=== PATIENT | male | born 2000 | race Caucasian/White ===

== ENCOUNTER 2025-06-22 11:37 | Emergency (ER) | payer OTHER, SELFPAY ==
--- NOTE | ~2025-06-22 | XR_ITS ---
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 Technique: 2 views obtained. Findings: The lungs are clear, no effusion. No pneumothorax. Heart is normal size. Mediastinal and hilar contours are within normal limits. Bony thorax no acute abnormality. Impression: No acute cardiopulmonary abnormality. Reviewed, dictated and finalized at location P. NG INSPECTOR Impression: No acute cardiopulmonary abnormality.
--- OUTSIDE RECORDS SUMMARY | 2025-06-22 11:38 | XMS_ITS | Clinical Summary ---
Author Organization [facility] Address [address] [place] [phone] Phone Care Team Providers Care Supervisor Bonding Name Role Phone Unavailable Primary Care Provider Unavailabl e Allergies No known active allergies Medications mometasone (ASMANEX) 220 mcg Aerosol Powdr Breath Activated Take 1 Puff by inhalation 2 times daily. Active Active Problems Problem Noted Date Diagnosed Date Moderate single current epis ode of major depressive disorder 01/05/2017 Family History Medical History Relation Name Comments Diabetes Father Hypertension Father Breast Cancer Mother Relation Name Status Comments Father Alive Mother Alive Social History Tobacco Use Types Packs/Day Years Used Date Smoking Tobacco: Never Alcohol Use Standard Drinks/Week Comments No 0 (1 standard drink = 0.6 oz pur e alcohol) Sex and Gender Information Value Date Recorded Sex Assigned at Not on file Legal Sex Male 1:15 PM CDT Gender Identity Not on file Sexual Orientation Not on file Last Filed Vital Signs Vital Sign Reading Time Taken Comments Blood Pressure 110/64 01/05/2017 4:38 PM CDT Pulse - - Temperature 37.1 C (98.8 F) 01/05/2017 1:20 PM CDT Respiratory Rate 17 01/05/2017 4:38 PM CDT Oxygen Saturation 99% 01/05/2017 4:38 PM CDT Inhaled Oxygen Concentration - - Weight 57.2 kg (126 lb) 01/05/2017 1:20 PM CDT Height - - Body Mass Index - - Plan of Treatment Health Maintenance Due Date Last Done Comments HPV VACCINES (1 - Male 3-dose series) 2014 DTAP/TDAP/TD VACCINES (1 - Tdap) 2018 HEPATITIS B VACCINES (1 of 3 - 19+ 3-dose series) 04/26 INFLUENZA VACCINE (#1) 2025 Insurance [employer] CHOICE [employer] CHOICE
[2025-06-22 11:42] VITALS: BP 107/74; PULSE 98; RESP 16; TEMP 36.7; O2SAT 98
[2025-06-22 12:30] VITALS: O2SAT 99
[2025-06-22] MEDS: IPRATROPIUM 0.5 MG/ALBUTEROL SULFATE 2.5 MG (BASE) AMPUL.NEB 3 ML INHALATION (12:49)
[2025-06-22 12:50] VITALS: PULSE 94; RESP 18
[2025-06-22 12:55] VITALS: PULSE 105; RESP 18
[2025-06-22 13:21] LABS: Influenza A QL RT-PCR Negative (Negative); Influenza B QL RT-PCR Negative (Negative); RSV RNA, RT-PCR Negative (Negative); SARS-CoV-2 RNA PCR Negative (Negative)
--- NOTE | 2025-06-22 13:26 | ED_ITS ---
HPI - URI/Sore Throat General Chief Complaint: Upper Respiratory Infection Stated Complaint: cough, asthma Time Seen by Provider: 06/22/25 11:51 History of Present Illness HPI Narrative: Patient with history of asthma has been dealing with a respiratory illness for the last few weeks, today he woke up feeling like he cannot breathe, with severe congestion, called his mom who drove back from [place] to take him to the emergency room here today. He is feeling a bit better now that he is upright Related Data Allergies Allergy/AdvReac Type Severity Reaction Status Date / Time No Known Allergies Allergy Verified 06/22/25 12:22 Review of Systems Review of Systems: All systems reviewed & are unremarkable except as noted in HPI and below Exam Narrative: EXAMINATION OF ORGAN SYSTEMS/BODY AREAS: Constitutional: Vital signs per nursing GENERAL:[No acute distress, non-toxic appearing.] HEAD: Normal with no signs of head trauma. EYES: EOMI, conjunctiva normal ENT: Hearing grossly intact LUNGS: Nonlabored breathing. Diminished lung sounds HEART: [Regular rate and rhythm] ABD: [Soft], [nontender to palpation] EXT: Normal range of motion SKIN: [No rashes or lesions.] NEURO: [Alert and oriented x 3. No gross focal sensory or strength deficits.] PSYCH: Normal affect Course Vital Signs Vital signs: Vital Signs Temperature 98.0 F 06/22/25 11:42 Pulse Rate 98 06/22/25 11:42 Respiratory Rate 16 06/22/25 11:42 Blood Pressure 107/74 06/22/25 11:42 Pulse Oximetry 98 06/22/25 11:42 Oxygen Delivery Room Air 06/22/25 11:42 Temperature 98.0 F 06/22/25 11:42 Pulse Rate 105 H 06/22/25 12:55 Respiratory Rate 18 06/22/25 12:55 Blood Pressure 107/74 06/22/25 11:42 Pulse Oximetry 99 06/22/25 12:30 Oxygen Delivery Room Air 06/22/25 12:30 MDM - URI/Sore Throat MDM Narrative Medical decision making narrative: Patient with history of asthma has been dealing with a respiratory illness for the last few weeks, today he woke up feeling like he cannot breathe, with severe congestion, called his mom who drove back from [place] to take him to the emergency room here today. He is feeling a bit better now that he is upright Has already done 2 rounds of antibiotics and steroids. On exam he does have diminished lung sounds, but otherwise is talking in full sentences, no respiratory distress. No DVT symptoms, perc negative without risk factors, overall symptoms seem more consistent with URI/bronchitis especially given the nasal congestion. After some breathing treatments patient states he feels much better, lungs clear. Chest x-ray negative. Will trial for another steroids, and start him on Flonase, Claritin, Sudafed easily, with follow-up to PCP return precautions. Patient agreeable to plan Lab Data Labs: Lab Results 06/22/25 Range/Units 12:24 Influenza A (RT-PCR) Negative (Negative) Influenza B (RT-PCR) Negative (Negative) RSV (RT-PCR) Negative (Negative) SARS-CoV-2 RNA (RT-PCR) Negative (Negative) Discharge Plan Discharge Clinical Impression: Upper respiratory infection Patient Disposition: Home Condition: Stable Instructions: Acute Bronchitis (ED) Additional Instructions: Your x-ray thankfully was normal today. Please follow-up with your primary care doctor, try the medications as prescribed. You can always return to the ER for any issues. Patient Language: [place] Prescriptions: New albuterol sulfate 90 mcg/actuation HFA aerosol inhaler 2 puff inhalation QID PRN (Reason: shortness of breath or wheezing) Qty: 8.5 0RF fluticasone propionate [Allergy Relief (fluticasone)] 50 mcg/actuation spray,suspension 1 spray intranasal DAILY Qty: 16 0RF Rx Instructions: administer into each nostril loratadine 10 mg tablet 10 mg PO DAILY Qty: 30 0RF prednisone 20 mg tablet 40 mg PO DAILY 5 Days Qty: 10 0RF pseudoephedrine HCl 120 mg tablet extended release 120 mg PO Q12H PRN (Reason: nasal congestion) Qty: 30 0RF ipratropium-albuterol 0.5 mg-3 mg(2.5 mg base)/3 mL solution for nebulization 3 ml inhalation Q6H PRN (Reason: shortness of breath or wheezing) Qty: 180 0RF Follow-up/Referrals: Carl Graves MD [Primary Care Provider, Pediatrics]
[2025-06-22 13:59] VITALS: BP 106/63; PULSE 87; RESP 14; O2SAT 99
== END 2025-06-22 14:00 | disposition home or self-care (01) ==
PROVIDERS: Emergency Provider Emergency Medicine; PCP Pediatrics
DX: J06.9 Acute upper respiratory infection, unspecified (principal); Z20.822 Contact with and (suspected) exposure to COVID-19; J45.909 Unspecified asthma, uncomplicated
CPT/HCPCS: 71046; 87637; 94640; 99283

== ENCOUNTER 2025-06-22 20:14 | Emergency (ER) | payer OTHER, SELFPAY ==
--- NOTE | ~2025-06-22 | CT_ITS ---
CTA CHEST CLINICAL HISTORY: sob, tachycardia . COMPARISON: Chest x-rays same day TECHNIQUE: Helical CTA performed from thoracic inlet to upper abdomen 100 mL Omnipaque 350 Coronal, sagittal reformats. Multiplanar MIPS CT images acquired with automatic exposure control for dose reduction DLP: 209 mGy-cm FINDINGS: Pulmonary arteries: No PE. Thoracic Aorta: No dissection or aneurysm. Heart/pericardium: Unremarkable. RV/LV ratio: Normal. Lungs/Pleura: Clear. Hyperinflation. Tracheobronchial tree: Patent. Nodes: No enlarged nodes. Bones: No acute bony abnormality. Soft tissues: Unremarkable. Visualized upper abdomen: Unremarkable. IMPRESSION: 1. No PE or other acute cardiopulmonary findings. Reviewed, dictated and finalized at location R. ERCIAL LITIGATION ASSOCIATE
--- OUTSIDE RECORDS SUMMARY | 2025-06-22 20:17 | XMS_ITS | Clinical Summary ---
Author Organization [facility] Address [address] [place] [phone] Phone Care Team Providers Care Deep Sea Diver Name Role Phone Unavailable Primary Care Provider [...] series) 04/26 INFLUENZA VACCINE (#1) 2025 Insurance [employer] CHOICE [employer] CHOICE
[2025-06-22 20:18] VITALS: BP 132/69; PULSE 122; RESP 20; TEMP 36.6; O2SAT 97
--- NOTE | 2025-06-22 20:41 | ED_ITS ---
HPI - SOB/Dyspnea General Chief Complaint: Shortness of Breath/Dyspnea <Jessica Mckeon PA-C - Last Filed: 06/23/25 17:16> Stated Complaint: Shortness of breath <Jessica Mckeon PA-C - Last Filed: 06/23/25 17:16> Time Seen by Provider: 06/22/25 20:26 <Jessica Mckeon PA-C - Last Filed: 06/23/25 17:16> Source: patient <Jessica Mckeon PA-C - Last Filed: 06/23/25 17:16> Mode of arrival: ambulatory <Jessica Mckeon PA-C - Last Filed: 06/23/25 17:16> Limitations: no limitations <Jessica Mckeon PA-C - Last Filed: 06/23/25 17:16> History of Present Illness HPI Narrative: This is a 25 year old male that presents to the ER for shortness of breath. He was just discharged a couple of hours ago after being seen for asthma exacerbation. He returned again for worsening shortness of breath after taking a nap. <Jessica Mckeon PA-C - Last Filed: 06/23/25 17:16> Related Data Allergies/Adverse Reactions: Allergies Allergy/AdvReac Type Severity Reaction Status Date / Time No Known Allergies Allergy Verified 06/22/25 12:22 <Jessica Mckeon PA-C - Last Filed: 06/23/25 17:16> Review of Systems 2 Review of Systems: All systems reviewed & are unremarkable except as noted in HPI and below <Jessica Mckeon PA-C - Last Filed: 06/23/25 17:16> PMFSH Past Medical History Medical History: Medical History (Updated 06/23/25 @ 03:08 by Jessica Mckeon PA-C) Asthma <Jessica Mckeon PA-C - Last Filed: 06/23/25 17:16> Exam 2 Narrative: GENERAL: Well-appearing, well-nourished, and in no acute distress. HEAD: Normocephalic, atraumatic. EYES: EOMI. ENT: Nares clear, no rhinorrhea or epistaxis. Mucous membranes moist. Oropharynx without tonsillar hypertrophy exudate or other lesions. Bilateral TMs pearly blair non-bulging NECK: Supple. No adenopathy or masses. CHEST: Clear to auscultation. No respiratory distress. No wheezes rales or rhonchi HEART: Regular rate and rhythm. No murmur heard. Normal peripheral pulses. EXTREMITIES: Normal range of motion. No edema. SKIN: Warm, dry, no rash. NEURO: No focal deficits. Alert and oriented x3. PSYCH: Normal mood and affect <Jessica Mckeon PA-C - Last Filed: 06/23/25 17:16> Course Course Emergency Course: Signed out pending CTA. CTA unremarkable. Symptoms improved with treatments here. Stable vital signs. Safe for discharge. <Dann Vasquez MD - Last Filed: 06/23/25 05:04> Vital Signs Vital signs: Vital Signs Temperature 97.9 F 06/22/25 20:18 Pulse Rate 122 H 06/22/25 20:18 Respiratory Rate 20 06/22/25 20:18 Blood Pressure 132/69 06/22/25 20:18 Pulse Oximetry 97 06/22/25 20:18 Oxygen Delivery Room Air 06/22/25 20:18 Temperature 97.9 F 06/22/25 20:18 Pulse Rate 97 06/23/25 03:43 Respiratory Rate 12 06/23/25 03:43 Blood Pressure 130/78 06/23/25 03:43 Pulse Oximetry 100 06/23/25 03:43 Oxygen Delivery Room Air 06/23/25 02:55 <Jessica Mckeon PA-C - Last Filed: 06/23/25 17:16> Vital Signs Temperature 97.9 F 06/22/25 20:18 Pulse Rate 122 H 06/22/25 20:18 Respiratory Rate 20 06/22/25 20:18 Blood Pressure 132/69 06/22/25 20:18 Pulse Oximetry 97 06/22/25 20:18 Oxygen Delivery Room Air 06/22/25 20:18 Temperature 97.9 F 06/22/25 20:18 Pulse Rate 97 06/23/25 03:43 Respiratory Rate 12 06/23/25 03:43 Blood Pressure 130/78 06/23/25 03:43 Pulse Oximetry 100 06/23/25 03:43 Oxygen Delivery Room Air 06/23/25 02:55 <Dann Vasquez MD - Last Filed: 06/23/25 05:04> MDM - SOB/Dyspnea MDM Narrative Medical decision making narrative: This is a 25 year old male that presents to the ER for shortness of breath. Just discharged a couple of hours prior. Further workup obtained. CBC and metabolic panel without concerning findings. Patient is tachycardic upon arrival. No wheezing noted initially. Will obtain CTA for further evaluation. He did develop wheezing throughout his stay in the ER. Received magnesium, Solu-Medrol, nebulizer treatment with relief again. Care taken over by Dr. Vasquez at shift change pending read <Jessica Mckeon PA-C - Last Filed: 06/23/25 17:16> Differential Diagnosis Differential diagnosis: Likely community acquired pneumonia, asthma with exacerbation and pulmonary embolism <Jessica Mckeon PA-C - Last Filed: 06/23/25 17:16> Lab Data Attestation: I reviewed the patient's lab results. <Jessica Mckeon PA-C - Last Filed: 06/23/25 17:16> Result diagrams: 06/22/25 20:53 06/22/25 20:53 <Jessica Mckeon PA-C - Last Filed: 06/23/25 17:16> Labs: Lab Results 06/22/25 Range/Units 20:53 WBC 8.7 (4.5-10.0) K/mm3 RBC 4.68 (4.6-6.20) M/mm3 Hgb 14.4 (14.0-18.0) g/dL Hct 42.5 (42.0-52.0) % MCV 90.8 (80-100) fl MCH 30.8 (26-34) pg MCHC 33.9 (32-36) g/dl RDW 12.9 (11.5-14.5) % Plt Count 222 (150-375) k/mm3 MPV 8.9 (7.4-10.4) fl Immature Gran % (Auto) 0.2 (0-0.5) % Neut % (Auto) 48.0 (45.5-73.1) % Lymph % (Auto) 21.6 (18.3-44.2) % [place] % (Auto) 8.4 (2.6-8.5) % Eos % (Auto) 20.5 H (0-4.4) % Baso % (Auto) 1.3 H (0.2-1.2) % Lymph # (Auto) 1.89 (0.9-3.2) K/mm3 [place] # (Auto) 0.7 H (0.1-0.6) K/mm3 Eos # (Auto) 1.8 H (0-0.3) K/mm3 Baso # (Auto) 0.1 (0.0-0.1) K/mm3 Abs Immat Gran (auto) 0.02 (0.00-0.031) K/mm3 Absolute Neuts (auto) 4.2 (1.3-6.7) K/mm3 Absolute Nucleated RBC 0.000 (0.0-0.012) K/mm3 Nucleated RBC % 0.0 (0.0-0.2) % PT 15.0 H (11.1-14.7) Seconds INR 1.2 APTT 32.4 (22.3-36.8) Seconds Sodium 140 (137-145) mmol/L Potassium 4.0 (3.4-5.0) mmol/L Chloride 107 (98-107) mmol/L Carbon Dioxide 27 (22-30) mmol/L Anion Gap 6 (4-12) mmol/L BUN 16 (9-20) mg/dL Creatinine 1.08 (0.7-1.3) mg/dL Estim Creat Clear Calc 87 ml/min Estimated GFR > 60 (59 - ) Glucose 113 H (65-110) mg/dL Calcium 8.7 (8.4-10.2) mg/dL Total Bilirubin 0.5 (0.2-1.3) mg/dL AST 24 (17-59) U/L ALT 20 (6-50) U/L Alkaline Phosphatase 46 (38-126) U/L NT-Pro-B Natriuret Pep < 20 (19.9-100) pg/mL Total Protein 7.1 (6.3-8.2) g/dL Albumin 4.1 (3.5-5.1) g/dL <Jessica Mckeon PA-C - Last Filed: 06/23/25 17:16> Lab Results 06/22/25 Range/Units 20:53 WBC 8.7 (4.5-10.0) K/mm3 RBC 4.68 (4.6-6.20) M/mm3 Hgb 14.4 (14.0-18.0) g/dL Hct 42.5 (42.0-52.0) % MCV 90.8 (80-100) fl MCH 30.8 (26-34) pg MCHC 33.9 (32-36) g/dl RDW 12.9 (11.5-14.5) % Plt Count 222 (150-375) k/mm3 MPV 8.9 (7.4-10.4) fl Immature Gran % (Auto) 0.2 (0-0.5) % Neut % (Auto) 48.0 (45.5-73.1) % Lymph % (Auto) 21.6 (18.3-44.2) % [place] % (Auto) 8.4 (2.6-8.5) % Eos % (Auto) 20.5 H (0-4.4) % Baso % (Auto) 1.3 H (0.2-1.2) % Lymph # (Auto) 1.89 (0.9-3.2) K/mm3 [place] # (Auto) 0.7 H (0.1-0.6) K/mm3 Eos # (Auto) 1.8 H (0-0.3) K/mm3 Baso # (Auto) 0.1 (0.0-0.1) K/mm3 Abs Immat Gran (auto) 0.02 (0.00-0.031) K/mm3 Absolute Neuts (auto) 4.2 (1.3-6.7) K/mm3 Absolute Nucleated RBC 0.000 (0.0-0.012) K/mm3 Nucleated RBC % 0.0 (0.0-0.2) % PT 15.0 H (11.1-14.7) Seconds INR 1.2 APTT 32.4 (22.3-36.8) Seconds Sodium 140 (137-145) mmol/L Potassium 4.0 (3.4-5.0) mmol/L Chloride 107 (98-107) mmol/L Carbon Dioxide 27 (22-30) mmol/L Anion Gap 6 (4-12) mmol/L BUN 16 (9-20) mg/dL Creatinine 1.08 (0.7-1.3) mg/dL Estim Creat Clear Calc 87 ml/min Estimated GFR > 60 (59 - ) Glucose 113 H (65-110) mg/dL Calcium 8.7 (8.4-10.2) mg/dL Total Bilirubin 0.5 (0.2-1.3) mg/dL AST 24 (17-59) U/L ALT 20 (6-50) U/L Alkaline Phosphatase 46 (38-126) U/L NT-Pro-B Natriuret Pep < 20 (19.9-100) pg/mL Total Protein 7.1 (6.3-8.2) g/dL Albumin 4.1 (3.5-5.1) g/dL <Dann Vasquez MD - Last Filed: 06/23/25 05:04> Imaging Data Radiologist's impression: ITS Impressions Chest CTA 06/23/25 06:36 IMPRESSION: 1. No PE or other acute cardiopulmonary findings. <Jessica Mckeon PA-C - Last Filed: 06/23/25 17:16> Critical Care Time Critical Care Time Critical Care Time: No <Jessica Mckeon PA-C - Last Filed: 06/23/25 17:16> Discharge Plan Discharge Clinical Impression: Asthma exacerbation Qualifiers: Asthma severity: unspecified severity Asthma persistence: unspecified Qualified Code(s): J45.901 - Unspecified asthma with (acute) exacerbation <Jessica Mckeon PA-C - Last Filed: 06/23/25 17:16> Patient Disposition: Home <Jessica Mckeon PA-C - Last Filed: 06/23/25 17:16> Condition: Improved <Jessica Mckeon PA-C - Last Filed: 06/23/25 17:16> Instructions: Asthma (ED) <Jessica Mckeon PA-C - Last Filed: 06/23/25 17:16> Additional Instructions: Return to the emergency department for worsening symptoms, or any other concerns Take steroid as prescribed. Albuterol 2 puffs every 4-6 hours as needed for shortness of breath or wheezing Follow up with primary care doctor <Jessica Mckeon PA-C - Last Filed: 06/23/25 17:16> Patient Language: Guyanese <Jessica Mckeon PA-C - Last Filed: 06/23/25 17:16> Prescriptions: No Action albuterol sulfate 90 mcg/actuation HFA aerosol inhaler 2 puff inhalation QID PRN (Reason: shortness of breath or wheezing) Qty: 8.5 0RF fluticasone propionate [Allergy Relief (fluticasone)] 50 mcg/actuation spray,suspension 1 spray intranasal DAILY Qty: 16 0RF Rx Instructions: administer into each nostril loratadine 10 mg tablet 10 mg PO DAILY Qty: 30 0RF prednisone 20 mg tablet 40 mg PO DAILY 5 Days Qty: 10 0RF pseudoephedrine HCl 120 mg tablet extended release 120 mg PO Q12H PRN (Reason: nasal congestion) Qty: 30 0RF ipratropium-albuterol 0.5 mg-3 mg(2.5 mg base)/3 mL solution for nebulization 3 ml inhalation Q6H PRN (Reason: shortness of breath or wheezing) Qty: 180 0RF <Jessica Mckeon PA-C - Last Filed: 06/23/25 17:16> Follow-up/Referrals: Carl Graves MD [Primary Care Provider, Pediatrics] <Jessica Mckeon PA-C - Last Filed: 06/23/25 17:16>
[2025-06-22 20:57] LABS: Hematocrit 42.5 % (42.0-52.0); Hemoglobin 14.4 g/dL (14.0-18.0); Immature Granulocyte Percent A 0.2 % (0-0.5); Lymphocytes Absolute Auto 1.89 K/mm3 (0.9-3.2); Mean Corpuscular HGB Conc 33.9 g/dl (32-36); Mean Corpuscular Hemoglobin 30.8 pg (26-34); Mean Corpuscular Volume 90.8 fl (80-100); Nucleated Red Blood Cells Absolute Auto 0.000 K/mm3 (0.0-0.012); Nucleated Red Blood Cells Perc 0.0 % (0.0-0.2); Platelet Count Result 222 k/mm3 (150-375); Red Blood Count 4.68 M/mm3 (4.6-6.20); White Blood Count 8.7 K/mm3 (4.5-10.0)
--- OUTSIDE RECORDS SUMMARY | 2025-06-22 20:58 | XMS_ITS | Clinical Summary ---
Author Organization [facility] Address [address] [place] [phone] Phone Care Team Providers Care Home Service Demonstrator Name Role Phone Unavailable Primary Care Provider [...] series) 04/26 INFLUENZA VACCINE (#1) 2025 Insurance [employer] CHOICE [employer] CHOICE
[2025-06-22 20:59] VITALS: O2SAT 100
[2025-06-22 21:17] LABS: INR 1.2; Prothrombin Time 15.0 Seconds (11.1-14.7)
[2025-06-22 21:18] LABS: Partial Thromboplastin Time 32.4 Seconds (22.3-36.8)
[2025-06-22 21:21] LABS: Alanine Aminotransferase 20 U/L (6-50); Albumin Level 4.1 g/dL (3.5-5.1); Alkaline Phosphatase 46 U/L (38-126); Anion Gap 6 mmol/L (4-12); Aspartate Amino Transferase 24 U/L (17-59); Bilirubin,Total 0.5 mg/dL (0.2-1.3); Blood Urea Nitrogen 16 mg/dL (9-20); Calcium 8.7 mg/dL (8.4-10.2); Carbon Dioxide 27 mmol/L (22-30); Chloride 107 mmol/L (98-107); Estimated CRCL calculation 87 ml/min; Estimated Glomerular Filt Rate > 60; Glucose 113 mg/dL (65-110); Potassium 4.0 mmol/L (3.4-5.0); Sodium 140 mmol/L (137-145); Total Protein 7.1 g/dL (6.3-8.2)
[2025-06-22 21:29] LABS: NT Pro B Type Natriuretic Pept < 20 pg/mL (19.9-100)
[2025-06-22] MEDS: MAGNESIUM SULF 2 GM/WATER 50ML 2 GM/50 ML BAG IVPB (23:24)
[2025-06-22] MEDS: IPRATROPIUM 0.5 MG/ALBUTEROL SULFATE 2.5 MG (BASE) AMPUL.NEB 3 ML INHALATION (23:30)
[2025-06-22 23:31] VITALS: PULSE 72; RESP 18
[2025-06-22 23:43] VITALS: PULSE 77; RESP 14; O2SAT 100
[2025-06-22 23:45] VITALS: PULSE 75; PULSE 77; RESP 14; RESP 18; O2SAT 100
[2025-06-23 02:55] VITALS: BP 127/70; PULSE 72; RESP 14; O2SAT 100; O2SAT 97
[2025-06-23 03:43] VITALS: BP 130/78; PULSE 97; RESP 12; O2SAT 100
== END 2025-06-23 03:46 | disposition home or self-care (01) ==
PROVIDERS: Emergency Provider Physician Assistant; PCP Pediatrics
DX: J45.901 Unspecified asthma with (acute) exacerbation (principal)
CPT/HCPCS: 36415; 71046; 71275; 80053; 83880; 85025; 85610; 85730; 87637; 94640; 96365; 96375; 99284; J2919; J3475; Q9967